=== PATIENT | male | born 1970 | race Caucasian/White ===

== ENCOUNTER 2018-12-16 12:45 | Emergency (ER) | payer OTHER ==
[2018-12-16 13:12] VITALS: BP 167/90; PULSE 74; RESP 18; TEMP 99
[2018-12-16] MEDS ORDERED: DIPH,PERTUS(ACELL)TETVAC-LF 0.5 ML VIAL IM ONE (13:22)
[2018-12-16] MEDS ORDERED: LIDOCAINE 1% INJ 10MG/ML (20 ML MDV) SQ ONE (13:24)
--- NOTE | 2018-12-16 13:56 | XR ---
EXAMINATION TYPE: XR hand complete RT DATE OF EXAM: 12/16/2018 COMPARISON: NONE HISTORY: Finger laceration with pain TECHNIQUE: Three views are submitted. FINDINGS: There is a bony density along the distal margin proximal phalanx fourth digit. Could represent a sof t tissue calcification or possibly foreign body. Arthropathy of the radiocarpal joint noted. Cystic c hange involving the scaphoid noted. There appears to be a linear lucency through the middle phalanx o f the third digit. IMPRESSION: 1. Nondisplaced fracture through the body of the middle phalanx third digit. 2. Linear density along the proximal phalanx may represent a soft tissue calcification. Small foreign body not excluded correlate clinically.
[2018-12-16] MEDS ORDERED: ceFAZolin 1,000 MG VIAL IM STA (14:49)
== END 2018-12-16 15:17 | disposition home or self-care (01) ==
LOC: EC 12:45
DX: S62.622B Displaced fracture of middle phalanx of right middle finger, initial encounter for open fracture (principal); S61.212A Laceration without foreign body of right middle finger without damage to nail, initial encounter; S61.214A Laceration without foreign body of right ring finger without damage to nail, initial encounter; X58.XXXA Exposure to other specified factors, initial encounter; Y92.89 Other specified places as the place of occurrence of the external cause
CPT/HCPCS: 12001; 96372; 99282

== ENCOUNTER → 2021-01-23 | Outpatient (CLI) | payer OTHER ==
--- NOTE | 2021-01-23 15:37 | NM ---
EXAMINATION TYPE: NM stress cardiolite complete DATE OF EXAM: 01/23/2021 COMPARISON: NONE HISTORY: Abnormal EKG TECHNIQUE: After the intravenous administration of 9.4 mCi Tc 99m Sestamibi - Rest images obtained 5 0 minutes post injection. The patient exercised using a JUANY protocol and 1 minute prior to peak e xercise was injected with 25.4 mCi Tc 99m Sestamibi - Stress images obtained 30 minutes post injectio n. FINDINGS: Targeted heart rate was achieved during performance of the study. Review of stress and rest SPECT lottie ges demonstrates no distinct reversible or fixed perfusion abnormality. Gated analysis shows normal wall motion with an estimated left ventricular ejection fraction of 67 %. IMPRESSION: No scintigraphic evidence for reversible ischemia
--- NOTE | 2021-01-23 19:13 | P.STRESS ---
- Stress Test Note Stress Test Results/Findings: Exam Performed: NM stress cardiolite complete Exam Date: 01/23/21 Reason for Exam: Abnormal EKG Height: 5 ft 5 in Weight: 165 kg Protocol: Rudy Stage: 7 Duration of Exercise: 20:00 Resting Heart Rate: 50 Resting Blood Pressure: 149/95 Maximum Achieved Heart Rate: 166 Maximum Achieved Blood Pressure: 204/90 85% PMHR: 144 100% PMHR: 169 METS: 19.3 Technologist Comment: Stress Test Results/Findings: Normal heart rate and blood pressure response to exercise Baseline ECG shows early repolarization abnormality Excellent exercise capacity of 20 minutes on a Rudy protocol No ECG evidence for ischemia Occasional premature beats
== END ==
LOC: RADNMMAIN 07:44
PROVIDERS: ATTEND Family Medicine
DX: R94.31 Abnormal electrocardiogram [ECG] [EKG] (principal)
CPT/HCPCS: 93017; 78452; A9500

== ENCOUNTER → 2022-10-23 | Outpatient (CLI) | payer OTHER ==
[2022-10-23 15:47] LABS: HCT 44.7 % (39.6-50.0); HGB 14.5 g/dL (13.0-17.0); MCH 30.3 pg (27.0-32.0); MCHC 32.4 g/dL (32.0-37.0); MCV 93.3 fL (80.0-97.0); Mean Platelet Volume 9.7 fL (9.5-12.2); NRBC Per 100 WBC 0 /100 WBCS (0.0-0.0); Platelet Count 261 X 10*3/uL (140-440); RBC 4.79 X 10*6/uL (4.40-5.60); RDW 12.5 % (11.5-14.5); WBC 5.88 X 10*3/uL (4.50-10.00)
[2022-10-23 16:06] LABS: ALT 22 U/L (10-49); AST 14 U/L (14-35); African American GFR (CKD) 99.1 (60.0-200.0); Albumin 4.7 g/dL (3.8-4.9); Albumin/Globulin Ratio 2.04 (1.60-3.17); Alkaline Phosphatase 90 U/L (41-126); Blood Urea Nitrogen 11.6 mg/dL (9.0-27.0); Calcium 9.8 mg/dL (8.7-10.3); Carbon Dioxide 28.2 mmol/L (20.0-27.5); Chloride 103 mmol/L (96-109); Chol/HDL Ratio 4.94 Ratio; Globulin 2.3 g/dL (1.6-3.3); Glucose 104 mg/dL (70-110); LDL Cholesterol,Calculated 132.9 mg/dL (0.0-131.0); Non-African American GFR(CKD) 85.5 (60.0-200.0); Potassium 4.7 mmol/L (3.5-5.5); Sodium 139 mmol/L (135-145)
== END | disposition home or self-care (01) ==
LOC: LABWHC1 11:24
PROVIDERS: ATTEND Family Medicine
DX: Z00.01 Encounter for general adult medical examination with abnormal findings (principal)
CPT/HCPCS: 36415; 80053; 80061; 84153; 85027

== ENCOUNTER → 2023-11-14 | Outpatient (CLI) | payer OTHER ==
[2023-11-14 14:25] LABS: HCT 43.9 % (39.6-50.0); HGB 14.2 g/dL (13.0-17.0); MCHC 32.3 g/dL (32.0-37.0); MCV 92.8 FL (80.0-97.0); Mean Platelet Volume 10.2 FL (9.5-12.2); NRBC Per 100 WBC 0 X 10*3/uL (0.00-0.01); Platelet Count 247 X 10*3/uL (140-440); RBC 4.73 X 10*6/uL (4.40-5.60); RDW 12.8 % (11.5-14.5); WBC 4.92 X 10*3/uL (4.50-10.00)
[2023-11-14 14:55] LABS: ALT 14 U/L (10-49); AST 19 U/L (14-35); Albumin 4.6 g/dL (3.8-4.9); Albumin/Globulin Ratio 2.42 Ratio (1.60-3.17); Alkaline Phosphatase 90 U/L (41-126); Blood Urea Nitrogen 13.1 mg/dL (9.0-27.0); Calcium 9.8 mg/dL (8.7-10.3); Chloride 105 mmol/L (96-109); Chol/HDL Ratio 4.39 Ratio; Globulin 1.9 g/dL (1.6-3.3); Glucose 106 mg/dL (70-110); LDL Cholesterol,Calculated 142.9 mg/dL (0.0-131.0); Prostate Specific Antigen 1.19 ng/mL (0.000-3.500); Sodium 139 mmol/L (135-145); Total Bilirubin 0.3 mg/dL (0.3-1.2); Total Protein 6.5 g/dL (6.2-8.2)
== END | disposition home or self-care (01) ==
LOC: LABWHC1 10:08
PROVIDERS: ATTEND Family Medicine
DX: Z00.01 Encounter for general adult medical examination with abnormal findings (principal)
CPT/HCPCS: 36415; 80053; 80061; 84153; 85027